=== PATIENT | female | born 1965 | race Caucasian/White ===

== ENCOUNTER 2024-04-04 12:22 | Emergency (ER) | payer OTHER, SELFPAY ==
[2024-04-04 12:23] VITALS: BMI 19.8
[2024-04-04 13:00] VITALS: BP 125/86; PULSE 100; RESP 16; TEMP 37.9; O2SAT 100
--- NOTE | 2024-04-04 13:29 | EDNOTE_ITS ---
ED General RME/HPI General Chief complaint: Flu Like Symptoms Stated complaint: VOMITING DIARRHEA Time Seen by Provider: 04/04/24 13:04 Arrival date/time: 04/04/24 12:22 58-year-old female presents emergency department complains of nausea vomiting and diarrhea as well as a low-grade temperature which began this morning patient reports she believes it secondary to some food that she ate Limitations: no limitations Related Data Previous Rx's ?Medication ?Instructions ?Recorded loratadine 10 mg tablet 10 mg PO QDAY ##30 10/15/12 diphenhydramine HCl 25 mg capsule 50 mg (2 x 25 mg) PO QID PRN 07/01/19 itching #20 caps acetaminophen 500 mg capsule 1,000 mg (2 x 500 mg) PO Q6H PRN 11/27/20 fever or pain #30 caps ibuprofen 600 mg tablet 600 mg PO Q8H PRN fever or pain 11/27/20 #30 tabs ibuprofen 600 mg tablet 600 mg PO Q6H #30 tabs 10/22/22 ibuprofen 600 mg tablet 600 mg PO Q6H #30 tabs 01/04/23 permethrin 5 % topical cream 1 applic topical Q14D 2 doses #60 01/27/24 grams permethrin 5 % topical cream 1 applic topical Q14D 2 doses #60 02/18/24 grams ibuprofen 600 mg tablet 600 mg PO Q6H #30 tabs 04/04/24 loperamide 2 mg capsule (Imodium 2 mg PO Q6H PRN loose stool #14 04/04/24 A-D) caps ondansetron 4 mg disintegrating 4 mg PO Q8H PRN nausea and 04/04/24 tablet vomiting #10 tabs Allergies Allergy/AdvReac Type Severity Reaction Status Date / Time No Known Allergies Allergy Verified 04/04/24 12:25 Review of Systems Review of Systems Systems Reviewed: All systems reviewed, normal except as documented Constitutional Constitutional: Reports system reviewed and no additional complaints, except as documented, Denies fever(s) and Denies headache(s) Eyes Eyes: Reports system reviewed and no additional complaints, except as documented and Denies blurry vision ENT Ears, Nose, Mouth, and Throat: Reports system reviewed and no additional complaints, except as documented, Denies headache(s), Denies nasal congestion and Denies nasal discharge Cardiovascular Cardiovascular: Reports system reviewed and no additional complaints, except as documented, Denies chest pain and Denies dyspnea Respiratory Respiratory: Reports system reviewed and no additional complaints, except as documented, Denies chest congestion, Denies cough and Denies dyspnea Gastrointestinal Gastrointestinal: Reports system reviewed and no additional complaints, except as documented, Reports abdominal pain, Reports loose stools, Reports nausea and Reports vomiting Integumentary/Breasts Skin/Breast: Reports system reviewed and no additional complaints, except as documented and Denies rash Neurologic Neurologic: Reports system reviewed and no additional complaints, except as documented, Reports as per HPI and Denies headache(s) Past Medical History Past Medical History NEUROLOGIC: Negative Neurological Disorders CARDIAC: Negative Cardiac Disorders ED Exam General Limitations: Present no limitations General appearance: Present alert and in no apparent distress Head Head exam: Present atraumatic Eye Eye exam: Present normal appearance, PERRL and EOMI ENT ENT exam: Present normal exam, normal oropharynx and mucous membranes moist Neck Neck exam: Present normal inspection, full ROM and trachea midline Chest Chest inspection: Present normal inspection and symmetric chest wall rise Respiratory Respiratory exam: Present normal lung sounds bilaterally Cardiovascular Cardiovascular exam: Present regular rate, normal rhythm and normal heart sounds Abdominal Exam Abdominal exam: Present soft and normal bowel sounds; Absent distention, tenderness, guarding, rebound or rigidity Abdominal tenderness: Absent RUQ or RLQ Extremities Exam Extremities exam: Present normal inspection and full ROM Back Exam Back exam: Present normal inspection and full ROM Neurological Exam Neurological exam: Present alert, oriented X3 and CN II-XII intact Psychiatric Psychiatric exam: Present normal affect and normal mood Skin Skin exam: Present warm, dry, intact and normal color Course Quality Measures none Orders Category Date Time Status Bedside Influenza A&B Antigen Test NOW Care 04/04/24 13:12 Completed Ibuprofen Tab [Motrin Tab] Med 04/04/24 13:12 Discontinued 600 mg PO X1 ONE Loperamide [Imodium] Med 04/04/24 13:12 Discontinued 4 mg PO X1 ONE Ondansetron Odt [Zofran Odt] Med 04/04/24 13:12 Discontinued 4 mg PO X1 ONE Vital Signs Vital signs: Vital Signs Temperature 100.3 F 04/04/24 13:00 Pulse Rate 100 04/04/24 13:00 Respiratory Rate 16 04/04/24 13:00 Blood Pressure 125/86 H 04/04/24 13:00 Pulse Oximetry (%) 100 04/04/24 13:00 Oxygen Delivery Method Room Air 04/04/24 13:00 O2 saturation 100% room air with normal limits MDM Patient data External records reviewed:: [facility] previous records Clinical information provided by:: patient Social determinants that could affect healthcare access:: none Patient has the following chronic illnesses:: None How is presenting disease/condition affected by chronic disease/condition?: no chronic disease Evaluation data The following diagnostics were reviewed and interpreted by me:: lab results Lab and/or radiology exams considered but not ordered:: Labs obtained Interpretation Summary: Reviewed by me Medications Medications considered but not ordered:: Given Medication administrations:: Medication Administration History Discontinued Medications Ibuprofen (Ibuprofen Tab 600 Mg Tablet) 600 mg PO X1 ONE Stop: 04/04/24 13:13 Last Admin: 04/04/24 13:55 Dose: 600 mg Documented By: Loperamide HCl (Loperamide 2 Mg Capsule) 4 mg PO X1 ONE Stop: 04/04/24 13:13 Last Admin: 04/04/24 13:55 Dose: 4 mg Documented By: Ondansetron HCl (Ondansetron Odt 4 Mg Tabrap) 4 mg PO X1 ONE; Protocol Stop: 04/04/24 13:13 Last Admin: 04/04/24 13:56 Dose: 4 mg Documented By: Given Consultations Consultation(s) initiated? (list below): No Diagnosis Differential Diagnosis ED Complaint MDM: URI, viral illness Most likely diagnosis given after review of the tests above:: Viral illness Admission Indicated Admission indicated?: not indicated Explain why admission is indicated or not indicated:: No criteria Admission Request Was there a request for admission?: No Disposition Plan Disposition Plan: Discharge Discharge Attestation Discharge Attestation: The patient and all family members were given an opportunity to ask questions and understood the discharge instructions. Discharge instructions specifically effects, indications for sooner follow up or return to the emergency department, and the expected course of current diagnosis. Patient condition: Stable Medical Decision Making MDM Narrative MDM Narrative: 58-year-old female presents emergency department complains of nausea vomiting and diarrhea as well as a low-grade temperature which began this morning patient reports she believes it secondary to some food that she ate On exam patient well-appearing patient does not appear ill or toxic Patient given ibuprofen, Imodium, Zofran here Patient checked for the flu which came back negative Symptoms are consistent with viral illness Patient discharged home in no distress to follow-up with primary care doctor in the next 24 to 48 hours and for any worsening symptoms to return to the ER immediately Differential Diagnosis Differential Diagnosis: URI, viral illness Medical Records Medical records reviewed: Yes I reviewed the patient's medical records. Lab Data Lab results reviewed: Yes I reviewed the patient's lab results. Discharge Plan Plan Patient Disposition: HOME (Self Care) Disposition Comment: Stable Prescriptions/Referrals Prescriptions/Med Rec: New loperamide [Imodium A-D] 2 mg capsule 2 mg PO Q6H PRN (Reason: loose stool) Qty: 14 0RF ibuprofen 600 mg tablet 600 mg PO Q6H Qty: 30 0RF ondansetron 4 mg tablet,disintegrating 4 mg PO Q8H PRN (Reason: nausea and vomiting) Qty: 10 0RF No Action loratadine 10 MG tablet 10 mg PO QDAY Qty: 30 0RF diphenhydramine HCl 25 mg capsule 50 mg PO QID PRN (Reason: itching) Qty: 20 0RF ibuprofen 600 mg tablet 600 mg PO Q8H PRN (Reason: fever or pain) Qty: 30 0RF acetaminophen 500 mg capsule 1,000 mg PO Q6H PRN (Reason: fever or pain) Qty: 30 0RF permethrin 5 % cream 1 applic topical Q14D Qty: 60 0RF Rx Instructions: apply second treatment 14 days after first treatment if live lice remain ibuprofen 600 mg tablet 600 mg PO Q6H Qty: 30 0RF ibuprofen 600 mg tablet 600 mg PO Q6H Qty: 30 0RF permethrin 5 % cream 1 applic topical Q14D Qty: 60 0RF Rx Instructions: apply second treatment 14 days after first treatment if live lice remain Problem List Clinical Impression: Viral infection Patient/Caregiver Discharge Instructions Education Materials: ED Viral Syndrome (Adult) Additional Instructions: Please follow up with your primary care doctor in the next 24-48hrs for any worsening symptoms return here immediately Print Language: Welsh Stand Alone Forms: Gisselle Award Info., Work/School Release, Patient Portal Info Letter PA/CHIEF DOG LICENSE INSPECTOR Supervising Physician PA/MAKENNA Supervising Physician: dr de la cruz
[2024-04-04] MEDS: IBUPROFEN TAB 600 MG TABLET PO (13:55)
[2024-04-04] MEDS: LOPERAMIDE 2 MG CAPSULE 4 MG PO (13:55)
[2024-04-04] MEDS: ONDANSETRON ODT 4 MG TABRAP PO (13:56)
== END 2024-04-04 14:42 | disposition home or self-care (01) ==
LOC: SERX 14:09
PROVIDERS: Emergency Provider Emergency Medicine
DX: B34.9 Viral infection, unspecified (principal)
CPT/HCPCS: 87400; 99283; Q0162; A9270

== ENCOUNTER 2024-06-08 05:06 | Emergency (ER) | payer OTHER, SELFPAY ==
[2024-06-08 05:06] VITALS: BMI 21.2
[2024-06-08 05:28] VITALS: BP 162/97; PULSE 90; RESP 16; TEMP 36.7; O2SAT 97
--- NOTE | 2024-06-08 05:33 | PD.EDUPEX ---
Upper Extremity Injury RME/HPI General Chief Complaint: Extremity Injury, Lower Stated Complaint: RT WRIST SWELLING AND PAIN Time Seen by Provider: 06/08/24 05:23 Source: patient Arrival date/time: 06/08/24 05:06 58-year-old female past medical history of right wrist fracture presents emergency department complaining of right wrist pain and swelling that is been ongoing for 4 days. Patient reports does a lot of gardening and works with her hands. Patient Nuys any fall injury or trauma to the wrist. Mode of arrival: ambulatory Limitations: no limitations Related Data Previous Rx's ?Medication ?Instructions ?Recorded loratadine 10 mg tablet 10 mg PO QDAY ##30 10/15/12 diphenhydramine HCl 25 mg capsule 50 mg (2 x 25 mg) PO QID PRN 07/01/19 itching #20 caps acetaminophen 500 mg capsule 1,000 mg (2 x 500 mg) PO Q6H PRN 11/27/20 fever or pain #30 caps ibuprofen 600 mg tablet 600 mg PO Q8H PRN fever or pain 11/27/20 #30 tabs ibuprofen 600 mg tablet 600 mg PO Q6H #30 tabs 10/22/22 ibuprofen 600 mg tablet 600 mg PO Q6H #30 tabs 01/04/23 permethrin 5 % topical cream 1 applic topical Q14D 2 doses #60 01/27/24 grams permethrin 5 % topical cream 1 applic topical Q14D 2 doses #60 02/18/24 grams ibuprofen 600 mg tablet 600 mg PO Q6H #30 tabs 04/04/24 loperamide 2 mg capsule (Imodium 2 mg PO Q6H PRN loose stool #14 04/04/24 A-D) caps ondansetron 4 mg disintegrating 4 mg PO Q8H PRN nausea and 04/04/24 tablet vomiting #10 tabs acetaminophen 500 mg capsule 500 mg PO Q6H PRN pain #30 caps 06/08/24 ibuprofen 600 mg tablet 600 mg PO Q8H PRN pain #20 tabs 06/08/24 Allergies Allergy/AdvReac Type Severity Reaction Status Date / Time No Known Allergies Allergy Verified 04/04/24 12:25 Review of Systems Review of Systems Systems Reviewed: All systems reviewed, normal except as documented Constitutional Constitutional: Reports system reviewed and no additional complaints, except as documented, Denies body ache(s), Denies chills and Denies fever(s) Eyes Eyes: Reports system reviewed and no additional complaints, except as documented and Denies change in vision ENT Ears, Nose, Mouth, and Throat: Reports system reviewed and no additional complaints, except as documented, Denies disequilibrium, Denies dizziness, Denies sore throat and Denies vertigo Cardiovascular Cardiovascular: Reports system reviewed and no additional complaints, except as documented, Denies chest pain and Denies dyspnea Respiratory Respiratory: Reports system reviewed and no additional complaints, except as documented, Denies chest congestion, Denies cough and Denies dyspnea Gastrointestinal Gastrointestinal: Reports system reviewed and no additional complaints, except as documented, Denies abdominal pain, Denies nausea and Denies vomiting Musculoskeletal Musculoskeletal: Denies abnormal gait and Reports arthralgias Integumentary/Breasts Skin/Breast: Reports system reviewed and no additional complaints, except as documented, Denies erythema, Denies rash and Denies wounds Neurologic Neurologic: Reports system reviewed and no additional complaints, except as documented, Denies abnormal gait, Denies disequilibrium, Denies dizziness and Denies vertigo Past Medical History Past Medical History NEUROLOGIC: Negative Neurological Disorders CARDIAC: Negative Cardiac Disorders or Congestive Heart Failure RESPIRATORY: Negative Chronic Obstructive Pulmonary Disease (COPD) GENITOURINARY: Negative Renal Disease ENDOCRINE: Negative Diabetes Mellitus Type 1 or Diabetes Mellitus Type 2 Surgical History SURGICAL: Positive Tonsillectomy Social History SMOKING STATUS: Former smoker SUBSTANCE USE: does not use ED Exam General Limitations: Present no limitations General appearance: Present alert and in no apparent distress Head Head exam: Present atraumatic Eye Eye exam: Present normal appearance, PERRL and EOMI ENT ENT exam: Present normal exam, normal oropharynx and mucous membranes moist Neck Neck exam: Present normal inspection, full ROM and trachea midline Chest Chest inspection: Present normal inspection and symmetric chest wall rise Respiratory Respiratory exam: Present normal lung sounds bilaterally Cardiovascular Cardiovascular exam: Present regular rate, normal rhythm and normal heart sounds Abdominal Exam Abdominal exam: Present soft and normal bowel sounds Extremities Exam Extremities exam: Present normal inspection and full ROM Expanded Upper Extremity Exam Forearm/Wrist exam: Present full ROM; Absent tenderness, swelling or deformity Back Exam Back exam: Present normal inspection and full ROM Neurological Exam Neurological exam: Present alert, oriented X3 and CN II-XII intact Psychiatric Psychiatric exam: Present normal affect and normal mood Skin Skin exam: Present warm, dry, intact and normal color Course Quality Measures none Orders Category Date Time Status jeferson wrap [Splint / Immobilizer] STAT Care 06/08/24 05:32 Active Ketorolac Inj [Toradol Inj] Med 06/08/24 05:32 Discontinued 30 mg IM X1 ONE Vital Signs Vital signs: Vital Signs Temperature 98.0 F 06/08/24 05:28 Pulse Rate 90 06/08/24 05:28 Respiratory Rate 16 06/08/24 05:28 Blood Pressure 162/97 H 06/08/24 05:28 Pulse Oximetry (%) 97 06/08/24 05:28 Oxygen Delivery Method Room Air 06/08/24 05:28 97% room air within normal limits Extremity Injury MDM Narrative MDM Narrative:: 58-year-old female past medical history of right wrist fracture presents emergency department complaining of right wrist pain and swelling that is been ongoing for 4 days. Patient reports does a lot of gardening and works with her hands. Patient Nuys any fall injury or trauma to the wrist. Right wrist full active range of motion with no obvious edema, redness, erythema, or obvious deformity. Right upper extremity neurovascularly intact with no loss of sensation. Jeferson wrap provided instructed patient to rest, ice, compress, and elevate affected extremity. Instructed to follow-up with primary care provider and request referral to physical therapy if symptoms persist. Patient data External records reviewed:: [facility] previous records Clinical information provided by:: patient Social determinants that could affect healthcare access:: none Patient has the following chronic illnesses:: See chart How is presenting disease/condition affected by chronic disease/condition?: uneffected by Evaluation data The following diagnostics were reviewed and interpreted by me:: other (specify) (N/A) Lab and/or radiology exams considered but not ordered:: N/A Interpretation Summary: N/A Medications / Prescriptions Medications or Prescriptions considered but not ordered:: Ordered Medication administrations:: Medication Administration History Discontinued Medications Ketorolac Tromethamine (Ketorolac Inj 60 Mg/2 Ml Vial) 30 mg IM X1 ONE Stop: 06/08/24 05:33 Given Consultations Consultation(s) initiated? (list below): No Diagnosis Upper Extremity Injury Differential Diagnosis: sprain and strain of wrist, fracture of wrist and other (Degenerative joint disease, arthritis) Most likely diagnosis given after review of the tests above:: Wrist pain Admission Indicated Admission indicated?: not indicated Admission Request Was there a request for admission?: No Disposition Plan Disposition Plan: Discharge Discharge Attestation Discharge Attestation: The patient and all family members were given an opportunity to ask questions and understood the discharge instructions. Discharge instructions specifically effects, indications for sooner follow up or return to the emergency department, and the expected course of current diagnosis. Patient condition: Stable Discharge Plan Plan Patient Disposition: HOME (Self Care) Disposition Comment: Stable Prescriptions/Referrals Prescriptions/Med Rec: New ibuprofen 600 mg tablet 600 mg PO Q8H PRN (Reason: pain) Qty: 20 0RF acetaminophen 500 mg capsule 500 mg PO Q6H PRN (Reason: pain) Qty: 30 0RF No Action loratadine 10 MG tablet 10 mg PO QDAY Qty: 30 0RF diphenhydramine HCl 25 mg capsule 50 mg PO QID PRN (Reason: itching) Qty: 20 0RF ibuprofen 600 mg tablet 600 mg PO Q8H PRN (Reason: fever or pain) Qty: 30 0RF acetaminophen 500 mg capsule 1,000 mg PO Q6H PRN (Reason: fever or pain) Qty: 30 0RF permethrin 5 % cream 1 applic topical Q14D Qty: 60 0RF Rx Instructions: apply second treatment 14 days after first treatment if live lice remain loperamide [Imodium A-D] 2 mg capsule 2 mg PO Q6H PRN (Reason: loose stool) Qty: 14 0RF ibuprofen 600 mg tablet 600 mg PO Q6H Qty: 30 0RF ondansetron 4 mg tablet,disintegrating 4 mg PO Q8H PRN (Reason: nausea and vomiting) Qty: 10 0RF ibuprofen 600 mg tablet 600 mg PO Q6H Qty: 30 0RF ibuprofen 600 mg tablet 600 mg PO Q6H Qty: 30 0RF permethrin 5 % cream 1 applic topical Q14D Qty: 60 0RF Rx Instructions: apply second treatment 14 days after first treatment if live lice remain Referrals: Temporary Provider,ED [Primary Care Provider] - In 1 week Problem List Clinical Impression: Pain, wrist Patient/Caregiver Discharge Instructions Discharge Activity: activity as tolerated Education Materials: ED JEFERSON Wrap, ED Arthralgia, ED RICE Additional Instructions: Take Tylenol or ibuprofen as needed for pain. Rest, ice, compress, and elevate affected extremity. Follow-up with primary care provider and request referral physical therapy if symptoms persist. Return to emergency department for any worsening symptoms or as needed. Print Language: Latvian Stand Alone Forms: Gisselle Award Info., Work/School Release, Patient Portal Info Letter PA/RAW CHEESE WORKER Supervising Physician PA/RAW CHEESE WORKER Supervising Physician: Dr. Luevano
[2024-06-08] MEDS: KETOROLAC INJ 60 MG/2 ML VIAL 30 MG IM (05:40)
== END 2024-06-08 05:45 | disposition home or self-care (01) ==
LOC: SERX 05:46
PROVIDERS: Emergency Provider Emergency Medicine; PCP Family Medicine
DX: M25.531 Pain in right wrist (principal)
CPT/HCPCS: 96372; 99283; J1885

== ENCOUNTER 2024-08-16 05:05 | Emergency (ER) | payer OTHER, SELFPAY ==
[2024-08-16 05:06] VITALS: BMI 20.5
[2024-08-16 05:13] VITALS: BP 156/95; PULSE 71; RESP 19; TEMP 36.5; O2SAT 97
--- NOTE | 2024-08-16 05:14 | PD.EDRME ---
Rapid Medical Screening Exam RME Arrival date/time: 08/16/24 05:05 Chief Complaint: Chest Pain Time Seen by Provider: 08/16/24 05:08 Vital signs: Vital Signs Temperature 97.7 F 08/16/24 05:13 Pulse Rate 71 08/16/24 05:13 Respiratory Rate 19 08/16/24 05:13 Blood Pressure 156/95 H 08/16/24 05:13 Pulse Oximetry (%) 97 08/16/24 05:13 Oxygen Delivery Method Room Air 08/16/24 05:13 RME Narrative: Chest heaviness since yesterday afternoon, improved since onset. Denies cardiac history.
--- NOTE | 2024-08-16 05:15 | XR_ITS ---
Examination: PA chest single view TECHNIQUE: Upright PA chest single view Exam date and time: August 16, 2024, 0554 hours Comparison October 23, 2012 INDICATIONS: Chest heaviness shortness of breath today FINDINGS: Mild to moderate enlargement left ventricle Prominent vascular congestion including central vascular engorgement Early septal edema at the lung bases Prominent osteopenia IMPRESSION: Early heart failure
[2024-08-16 06:22] LABS: Collection Type, Urine Clean Catch
[2024-08-16 06:25] LABS: Basophils # (Auto) 0.1 Thou/mm3 (0.0-0.2); Basophils % (Auto) 1 % (0-2.5); Eosinophils # (Auto) 0.4 Thou/mm3 (0.0-0.5); Eosinophils % (Auto) 6 % (0-10); Hematocrit 42.3 % (36.0-46.0); Hemoglobin 14.1 g/dL (12.0-16.0); Immature Granulocytes % (Auto) 0 % (0-0); Immature Granulocytes Auto 0.02 Thou/mm3 (0.00-0.00); Lymphocytes # (Auto) 1.8 Thou/mm3 (1.0-4.8); Lymphocytes % (Auto) 29 % (10-50); Mean Corpuscular HGB Conc 33.3 g/dl (31.0-37.0); Mean Corpuscular Hemoglobin 31.3 pg (25.0-35.0); Mean Corpuscular Volume 94 fL (80-100); Monocytes # (Auto) 0.5 Thou/mm3 (0.0-0.8); Monocytes % (Auto) 8 % (0-12); Neutrophils # (Auto) 3.6 Thou/mm3 (1.8-7.7); Neutrophils % (Auto) 56 % (37-80); Nucleated Red Blood Cell % 0 /100 WBC (0); Platelet Count 296 Thou/mm3 (140-440); RDW Standard Deviation 46.9 fL (36.4-46.3); Red Blood Count 4.51 Miln/mm3 (4.00-5.20); White Blood Count 6.4 Thou/mm3 (3.6-11.0)
[2024-08-16 06:35] LABS: Bilirubin,Urine Negative (Negative); Blood,Urine Trace (Negative); Clarity,Urine Clear (Clear/Hazy); Color,Urine Yellow (Lt Yel-Yel); Glucose, Urine Negative (Negative); Ketones,Urine Negative (Negative); Leukocyte Esterase,Urine Negative (Negative); Nitrite,Urine Negative (Negative); Protein,Urine Negative (Neg - Trace); RBC,Urine 4 /hpf (0-3); Squamous Epithelial Cell,Urine 2 /hpf (0-5); WBC,Urine 2 /hpf (0-5)
[2024-08-16 06:42] LABS: B-Type Natriuretic Peptide 44 pg/mL (0-100)
[2024-08-16 06:47] LABS: Alanine Aminotransferase 9 U/L (10-49); Albumin, Serum 4.3 gm/dL (3.5-5.0); Albumin/Globulin Ratio 1.7 (1.2-2.2); Alkaline Phosphatase 93 U/L (46-116); Anion Gap 5 (7-16); Aspartate Amino Transferase 11 U/L (0-34); BUN/Creatinine Ratio 32 Ratio (12-20); Bilirubin,Total 0.4 mg/dL (0.3-1.2); Blood Urea Nitrogen 19 mg/dL (9-23); Calcium 9.5 mg/dL (8.3-10.6); Calcium (Corrected) 9.5 mg/dL (8.5-10.1); Carbon Dioxide 30.5 mMol/L (20.0-31.0); Chloride 104 mMol/L (98-107); Creatinine (Component) 0.6 mg/dL (0.6-1.3); Globulin 2.5 gm/dL (2.3-3.5); Glucose 98 mg/dL (74-106); Osmolality,Calculated 279 (275-295); Potassium 3.8 mMol/L (3.4-5.1); Sodium 139 mMol/L (136-145); Total Protein 6.8 gm/dL (5.7-8.2); Troponin I < 0.020 ng/mL (0.0-0.045); eGFR > 60 See Note
[2024-08-16 06:57] LABS: Amphetamine/Methamp Scrn,U Positive (Negative); Barbiturate Screen,Urine Negative (Negative); Benzodiazepines Screen,Urine Negative (Negative); Benzoylecgonine Screen, Ur Negative (Negative); Fentanyl Screen,Urine Negative (Negative); Opiate Screen,Urine Negative (Negative); THC Screen,Urine Positive (Negative)
[2024-08-16 07:33] VITALS: BP 142/87; PULSE 74; RESP 18; TEMP 36.6; O2SAT 96
--- NOTE | 2024-08-16 08:15 | PD.EDCHEST ---
ED Chest Pain RME/HPI General Chief Complaint: Chest Pain Stated Complaint: CHEST PAIN Time Seen by Provider: 08/16/24 05:08 Arrival date/time: 08/16/24 05:05 RME / HPI RME / HPI narrative: Chest heaviness since yesterday afternoon, improved since onset. Denies cardiac history. DR. EPSTEIN MAIN ED EVALUATION: 58 year old female presents to the Emergency Department with complaint of chest pain since 9 AM yesterday that lasted until 1 PM yesterday. Pain has resolved but she mentions that she would like a work note for today. Denies any cardiac history but does use methamphetamine since forever , last used 5 PM 2 days ago. She states that lately she has a lot of stress and that could be a factor. No shortness of breath, no cough, no other pain or other symptoms reported. She also had a right wrist bump for a month, states it has improved. Denies any injury. PMHx: Smokes methamphetamine and marijuana but otherwise denies any PMHx, surgeries, daily medications, or known allergies. Related Data Previous Rx's ?Medication ?Instructions ?Recorded loratadine 10 mg tablet 10 mg PO QDAY ##30 10/15/12 diphenhydramine HCl 25 mg capsule 50 mg (2 x 25 mg) PO QID PRN 07/01/19 itching #20 caps acetaminophen 500 mg capsule 1,000 mg (2 x 500 mg) PO Q6H PRN 11/27/20 fever or pain #30 caps ibuprofen 600 mg tablet 600 mg PO Q8H PRN fever or pain 11/27/20 #30 tabs ibuprofen 600 mg tablet 600 mg PO Q6H #30 tabs 10/22/22 ibuprofen 600 mg tablet 600 mg PO Q6H #30 tabs 01/04/23 permethrin 5 % topical cream 1 applic topical Q14D 2 doses #60 01/27/24 grams permethrin 5 % topical cream 1 applic topical Q14D 2 doses #60 02/18/24 grams ibuprofen 600 mg tablet 600 mg PO Q6H #30 tabs 04/04/24 loperamide 2 mg capsule (Imodium 2 mg PO Q6H PRN loose stool #14 04/04/24 A-D) caps ondansetron 4 mg disintegrating 4 mg PO Q8H PRN nausea and 04/04/24 tablet vomiting #10 tabs acetaminophen 500 mg capsule 500 mg PO Q6H PRN pain #30 caps 06/08/24 ibuprofen 600 mg tablet 600 mg PO Q8H PRN pain #20 tabs 06/08/24 Allergies Allergy/AdvReac Type Severity Reaction Status Date / Time No Known Allergies Allergy Verified 04/04/24 12:25 Review of Systems Review of Systems Systems Reviewed: All systems reviewed, normal except as documented Narrative Review of Systems: Constitutional: DENIES: fevers; Eyes: DENIES: loss of vision; Head/Ear/Nose: DENIES: loss of hearing. Throat: DENIES: dysphagia. Cardiovascular: POSITIVES: chest pain DENIES: dyspnea, or syncope. Respiratory: DENIES: shortness of breath; Gastrointestinal: DENIES: rectal bleeding or melena. Genitourinary: DENIES: dysuria (painful or difficult urination); Musculoskeletal: DENIES: arthralgia (pain in a joint); Skin: DENIES: rash; Neurological: DENIES: loss of function or movement; Psychiatric: DENIES: recent major life stressor, emotional problem, illicit drug use or abuse; Endocrinology: DENIES: weight change,; Hematologic/Lymphatic: DENIES: abnormal bruising. Allergic/Immunologic: DENIES: urticaria (hives). Past Medical History Surgical History SURGICAL: Positive Tonsillectomy Social History SMOKING STATUS: Never smoker SUBSTANCE USE: marijuana and methamphetamine ALCOHOL: Current ED Exam Narrative Physical exam: Physical Exam: General: The vital signs were reviewed. The patient is non-toxic, in no apparent distress and appears healthy with a patent airway, no respiratory distress and has no apparent circulatory problems. Head & Scalp: Normocephalic, atraumatic. Face: Appears normal and is without lesions, deformity. Ears: Left external pinna appears normal. Right external pinna appears normal. Eyes: The sclera is anicteric. No obvious photophobia. The Left and Right Orbit/Lid/Conjunctiva appears normal without swelling, discoloration or injection. Nose: The nose is without deformity, discharge or tenderness; Throat: Appears normal. The mucous membranes are pink and moist without exudates, redness or mass seen. The tongue appears normal. Neck: The neck is supple and no apparent mass or adenopathy. Chest: The chest wall is normal in size and symmetry and has no chest wall tenderness or crepitus. The patient displays normal ventilator effort without retractions, accessory muscle use and has adequate air movement bilaterally with no wheezes and no rales. Cardiovascular: Regular rate and rhythm; No murmurs, rubs, or gallops; Gastrointestinal: The abdomen appears normal. No obvious hernias or mass. The abdomen is soft and benign, non-distended, with no pain, no guarding and no rebound tenderness. Bowel sounds are present and normal sounding. No CVA tenderness. Genitourinary: Back/Spine: Nontender normal inspection Extremities/Musculoskeletal/lymphatic: Right distal forearm on radial side has a soft tissue prominence which is very superficial appears to be either venous or some soft tissue swelling that patient states been there for a month. There is no redness no lymphangitic streak no fluctuance. The bilateral upper and lower extremities are warm. There is no evidence of arterial insufficiency. There is no evidence of venous insufficiency/edema. The patient spontaneously moves bilateral upper and lower extremities with no pain and no limitation of movement. There is no apparent, injury or trauma. Skin: The skin is warm, dry and intact. No rashes. No petechia. No purpura. No abnormal bruising. The color is appropriate with no cyanosis. Mental status/Psychiatric: Mental status is appropriate for age. The patient has no apparent delusions, visual hallucinations, no apparent audible hallucinations. The patient has no apparent suicidal thoughts/ideation and no apparent homicidal thoughts/ideation. Neurological: The patient is awake, alert, interactive, cordial, cooperative and is oriented to name and situation. The patient follows commands and answers historical question with no impairment. There is no visual disturbance apparent. The pupils are equal and reactive bilaterally with normal eye movements and no diplopia The bilateral upper and lower extremities have normal strength, normal range of motion and normal functioning. The gait, station and balance appear to be baseline with no acute change Course Quality Measures none Orders Category Date Time Status EKG (ED ONLY) *Do not use* NOW Care 08/16/24 05:09 Completed CXR [XR chest 1V] Stat Exams 08/16/24 05:15 Completed EKG (ED Only) Stat Exams 08/16/24 05:09 Ordered BNP [B-Type Natriuretic Peptide] Stat Lab 08/16/24 06:10 Completed CBC Stat Lab 08/16/24 06:10 Completed CMP [Comprehensive Metabolic Panel] Stat Lab 08/16/24 06:10 Completed Drug Screen,Urine Stat Lab 08/16/24 06:09 Completed Troponin I Stat Lab 08/16/24 06:10 Completed UA [Urinalysis] Stat Lab 08/16/24 06:09 Completed Vital Signs Vital signs: Vital Signs Temperature 97.7 F 08/16/24 05:13 Pulse Rate 71 08/16/24 05:13 Respiratory Rate 19 08/16/24 05:13 Blood Pressure 156/95 H 08/16/24 05:13 Pulse Oximetry (%) 97 08/16/24 05:13 Oxygen Delivery Method Room Air 08/16/24 05:13 Chest Pain MDM Narrative MDM Narrative:: I, Yocasta Grover, am scribing for and in the presence of Dr. Epstein. Patient states she had chest discomfort started at 9 AM to 1 PM with radiation to the left arm. She also states she did not feel good but there was no shortness of breath. She has no history of coronary disease. She has been using meth for a long time states she last use approximately 24 hours before this event of chest pain. Patient also states she wants a work excuse and she mentioned that twice. Medical workup reveals a CBC with a white count of 6.4 hemoglobin of 14.1 electrolytes are within normal limits BUN 19 creatinine 0.6 transaminases bilirubin within normal limits and initial troponin is negative. Initial BNP is negative. UA is unremarkable and urine drug screen is positive for both meth and marijuana Since patient is using meth and had count of a classic story second troponin is indicated. Patient refuses states she is tired and wants to go home. She just wants to have a work excuse. I told her that we really need to get that to exclude coronary artery spasm post meth abuse. She still refused so she is going to sign out AMA understanding that is still possible she could have had a cardiac event and the consequences of sudden and/or disability. Charge nurse Tana was given information and signed out AMA. Patient also got a work excuse from the time she arrived to the time she is leaving. It was advised to follow-up with her doctors to reevaluate this or return if getting worse. Patient data External records reviewed:: [facility] previous records (Reviewed last ED visit dated 06/08/24, discharged with the following: Pain, wrist) Clinical information provided by:: patient Social determinants that could affect healthcare access:: substance use (methamphetamine and marijuana) Patient has the following chronic illnesses:: Smokes methamphetamine and marijuana but otherwise denies any PMHx, surgeries, daily medications, or known allergies. How is presenting disease/condition affected by chronic disease/condition?: no chronic disease Evaluation data The following diagnostics were reviewed and interpreted by me:: lab results, radiology exam(s) and EKG tracing(s) (EKG#1: EKG at 0516 hours. Interpreted by me: sinus rhythm, rate 71, no STEMI) Lab and/or radiology exams considered but not ordered:: none Interpretation Summary: Procedure(s): XR chest 1V Accession Number(s): [id number] cc: Kane Watson MD; NO PRIMARY/FAMILY,PHYSICIAN; Yoshi Smith PA-C~ Examination: PA chest single view TECHNIQUE: Upright PA chest single view Exam date and time: August 16, 2024, 0554 hours Comparison October 23, 2012 INDICATIONS: Chest heaviness shortness of breath today FINDINGS: Mild to moderate enlargement left ventricle Prominent vascular congestion including central vascular engorgement Early septal edema at the lung bases Prominent osteopenia IMPRESSION: Early heart failure Dictated By: Kane Watson MD Medications / Prescriptions Medications or Prescriptions considered but not ordered:: none Medication administrations:: none Consultations Consultation(s) initiated? (list below): No Diagnosis Chest Pain Differential Diagnosis: atypical chest pain, costochondritis, chest pain and biliary colic Most likely diagnosis given after review of the tests above:: Chest pain Methamphetamine abuse Left AMA Admission Indicated Admission indicated?: not indicated Explain why admission is indicated or not indicated:: This patient is choosing to leave against medical advice. I have personally explained to the patient that choosing to do so may result in permanent bodily harm or . I discussed a great length that without further evaluation and monitoring there may be unforeseen circumstances and deterioration causing permanent bodily harm or as a result of their choice. The patient is alert, oriented and competent at this time. The patient states that they are aware of the serious risks as explained, but they continue to wish to leave against medical advice. In light of their decision to leave AMA, follow-up has been arranged and they are aware of the importance of following up as instructed. They have been advised that they should return to the ED immediately if they change their mind at any time, or if their condition begins to change or worsen. Admission Request Was there a request for admission?: No Disposition Plan Disposition Plan: other (specify) (AMA) Discharge Plan Plan Patient Disposition: Left Against Medical Advice Prescriptions/Referrals Prescriptions/Med Rec: No Action loratadine 10 MG tablet 10 mg PO QDAY Qty: 30 0RF diphenhydramine HCl 25 mg capsule 50 mg PO QID PRN (Reason: itching) Qty: 20 0RF ibuprofen 600 mg tablet 600 mg PO Q8H PRN (Reason: fever or pain) Qty: 30 0RF acetaminophen 500 mg capsule 1,000 mg PO Q6H PRN (Reason: fever or pain) Qty: 30 0RF permethrin 5 % cream 1 applic topical Q14D Qty: 60 0RF Rx Instructions: apply second treatment 14 days after first treatment if live lice remain loperamide [Imodium A-D] 2 mg capsule 2 mg PO Q6H PRN (Reason: loose stool) Qty: 14 0RF ibuprofen 600 mg tablet 600 mg PO Q6H Qty: 30 0RF ondansetron 4 mg tablet,disintegrating 4 mg PO Q8H PRN (Reason: nausea and vomiting) Qty: 10 0RF ibuprofen 600 mg tablet 600 mg PO Q6H Qty: 30 0RF ibuprofen 600 mg tablet 600 mg PO Q6H Qty: 30 0RF permethrin 5 % cream 1 applic topical Q14D Qty: 60 0RF Rx Instructions: apply second treatment 14 days after first treatment if live lice remain ibuprofen 600 mg tablet 600 mg PO Q8H PRN (Reason: pain) Qty: 20 0RF acetaminophen 500 mg capsule 500 mg PO Q6H PRN (Reason: pain) Qty: 30 0RF Referrals: No Primary/Family,Physician [Primary Care Provider] - In 1 week Problem List Clinical Impression: Chest pain, Methamphetamine abuse, Left against medical advice Patient/Caregiver Discharge Instructions Education Materials: ED Chest Pain, Uncertain Cause, ED Drug Abuse Additional Instructions: Please follow-up with your doctor to address your chest pain. Please never use methamphetamine again. Return if you are getting worse. Please note you left AGAINST MEDICAL ADVICE and you did not want to wait for second troponin. As we discussed the risks of having a heart attack can lead to and permanent disability and you signed an AMA form understanding these issues. Print Language: Malay Stand Alone Forms: Work/School Release
== END 2024-08-16 08:32 | disposition left against medical advice (07) ==
PROVIDERS: Physician Assistant; Emergency Provider Emergency Medicine
DX: R07.9 Chest pain, unspecified (principal); F15.10 Other stimulant abuse, uncomplicated; Z53.29 Procedure and treatment not carried out because of patient's decision for other reasons
CPT/HCPCS: 36415; 71045; 80053; 80307; 81001; 83880; 84484; 85025; 93005; 99283